=== PATIENT | female | born 1940 | race Caucasian/White ===

== ENCOUNTER 2018-06-20 12:32 | Emergency (ER) | payer OTHER ==
[~2018-06-20] VITALS: Ht 170.2 cm; Wt 78.9 kg
--- NOTE | 2018-06-20 13:33 | ED GENERAL ADULT ---
History of Present Illness General Chief Complaint: Fall Stated Complaint: BIBA RAPID RESPONSE TRIP AND FALL Source: patient, family Exam Limitations: no limitations Vital Signs & Intake/Output Vital Signs & Intake/Output Vital Signs Date Time Temp Pulse Resp B/P B/P Pulse O2 O2 Flow FiO2 Mean Ox Delivery Rate 06/20 1237 97.0 67 20 109/77 97 Room Air Allergies Coded Allergies: No Known Allergies (06/20/18) Triage Note: PT BIBA TO TRIAGE S/P AND FALL AT [facility] PRIOR TO MAMMOGRAM. PT HAS NO COMPLAINTS, DENIES HEADSTRIKE. PT DENIED DIZZINESS PRIOR TO FALL. STATES PT WAS SENT TO ED FOR EKG. PT DENIES C/P, DIZZINESS, DIFF BREATHING, SOB. PT CURRENTLY WITH BELLS PALSY, LEFT SIDED FACIAL DROOP NOTED. Triage Nurses Notes Reviewed? yes HPI: 78 yea old female with history of recent Boyce's palsy presents emergency department stay and requests of an outpatient clinic. She was apparently crossed history the emergency department when she tripped and fell. Patient denied any loss of consciousness any syncopal or presyncopal type symptoms. She tells me she denies any chest pain no shortness of breath she has no symptoms at this time and does not want to be in the emergency department. She has been brought over here by her diagnostic radiologist at the request of the doctor at her previous outpatient clinic. They were told that she needed an EKG. Again the patient had no complaints of any chest pain or discomfort no shortness of breath no lightheadedness no dizziness. She's tells me that she had a purely mechanical fall. (Leslye Hernandes PA-C) Past History Travel History Traveled to [place] past 21 day No Medical History Any Pertinent Medical History? see below for history Neurological: BELLS PALSY Cardiovascular: hypertension Surgical History Surgical History: non-contributory Psychosocial History What is your primary language Bel[place] Tobacco Use: Never used ETOH Use: denies use Illicit Drug Use: denies illicit drug use Family History Hx Contributory? No (Leslye Hernandes PA-C) Review of Systems Review of Systems Constitutional: Denies: no symptoms, see HPI, chills, diaphoresis, fever, malaise, weakness, unexplained weight loss. EENTM: Denies: no symptoms. Respiratory: Denies: no symptoms. Cardiovascular: Denies: see HPI, chest pain, edema, orthopena, palpitations, peripheral edema, syncope. GI: Denies: abdominal pain, bloating. Genitourinary: Denies: no symptoms. Musculoskeletal: Denies: no symptoms. Skin: Denies: no symptoms. Neurological/Psychological: Denies: anxiety, ataxia, cognitive dysfunction, confusion, headache, numbness, tingling, tremors. Hematologic/Endocrine: Denies: no symptoms. Immunologic/Allergic: Denies: no symptoms. All Other Systems: Reviewed and Negative (Leslye Hernandes PA-C) Physical Exam Physical Exam General Appearance: well developed/nourished, no apparent distress, alert, awake Head: atraumatic, normal appearance Eyes: Bilateral: PERRL, EOMI. Ears, Nose, Throat: normal pharynx, normal ENT inspection Neck: normal inspection, supple Respiratory: normal breath sounds, no respiratory distress, lungs clear Cardiovascular: regular rate/rhythm Extremities: normal inspection, normal capillary refill, normal range of motion Neurologic/Psych: bells palsy noted-left Skin: intact, normal color Core Measures ACS in differential dx? No CVA/TIA Diagnosis: No Sepsis Present: No Sepsis Focused Exam Completed? No (Leslye Hernandes PA-C) Progress Differential Diagnoses I considered the following diagnoses in my evaluation of the patient: Mechanical fall. Plan of Care: Orders Procedure Date/time Status EKG 06/20 1257 Active Patient was sent over for an EKG at the request of an outpatient physician after sustaining a mechanical fall on the way out of an appointment for mammogram. Patient did not want any workup. Recommendation for EKG was noted by the family member. She elected to have an EKG which showed new left bundle branch block. She is currently asymptomatic but will need to have follow-up with cardiology. This was discussed with Dr. العلي. Follow-up with cardiology in the next 1-2 weeks. Initial ED EKG: LBBB (Leslye Hernandes PA-C) Departure Departure Disposition: HOME OR SELF CARE Condition: Stable Clinical Impression Primary Impression: Fall (on) (from) unspecified stairs and steps, initial encounter Referrals: Sean Prajapati MD (PCP/Family) Additional Instructions: Follow-up with her database admin in the next 1-2 weeks. Departure Forms: Customer Survey General Discharge Information (Leslye Hernandes PA-C) PA/INSTRUCTIONAL LEADER Co-Sign Statement Statement: ED Attending supervision documentation- [x] I saw and evaluated the patient. I have also reviewed all the pertinent lab results and diagnostic results. I agree with the findings and the plan of care as documented in the PA's/INSTRUCTIONAL LEADER's documentation. [] I have reviewed the ED Record and agree with the PA's/INSTRUCTIONAL LEADER's documentation. [] Additions or exceptions (if any) to the PAs/INSTRUCTIONAL LEADER's note and plan are summarized below: [] 78-year-old female presents with a fall. She was advised of the breast imaging places when her foot tripped on the carpet and she fell down. The patient has no complaints. She is refusing any workup. EKG was done as part of triage protocol and shows a new left bundle branch block. The patient regularly sees her database admin, has no preceding symptoms has no chest pain. Has no signs of ACS. The patient has no external signs of head trauma. She has Boyce's palsy was started 2 weeks ago. The patient is refusing head CT, x-rays, and a workup. She reports that she feels fine and would like to go home. I will discharge in the care of her the emergency room return warnings. Physical exam is benign. (Zohra CARTWRIGHT,[facility]) Critical Care Note Critical Care Note Critical Care Time: non-applicable (Leslye Hernandes PA-C)
[2018-06-20 13:58] VITALS: BP 116/70
== END 2018-06-20 13:58 ==
LOC: ERH 12:32
DX: Z04.3 Encounter for examination and observation following other accident (principal); I10 Essential (primary) hypertension
CPT/HCPCS: 93005; 93010